=== PATIENT | female | born 1955 ===

== ENCOUNTER 2018-04-19 15:15 | Emergency (ER) | payer SELFPAY ==
[2018-04-19 15:40] LABS: BASO # 0.1 K/uL (0.0-0.2); EOS % 0.2 % (0.0-4.0); HEMOGLOBIN 12.6 g/dL (11.0-16.0); LYMPH # 3.4 K/uL (1.0-4.3); LYMPH % 27.4 % (20.0-40.0); MEAN CELL VOLUME 87.2 fL (81.0-99.0); MEAN CORPUSCULAR HGB CONC 33.3 g/dL (33.0-37.0); MEAN PLATELET VOLUME 7.2 fL (7.2-11.7); MONO # 0.5 K/uL (0.0-0.8); MONO % 4.5 % (0.0-10.0); NEUT # 8.2 K/uL (1.8-7.0); NEUT % 66.9 % (50.0-75.0); NRBC % 0.2 % (0.0-2.0); RBC 4.33 Mil/uL (3.80-5.20); RED CELL DISTRIBUTION WIDTH 13.7 % (11.5-14.5); WHITE BLOOD COUNT 12.2 K/uL (4.8-10.8)
[2018-04-19 15:52] LABS: ALB/GLOB RATIO 1.3 (1.0-2.1); ALT/SGPT 19 U/L (9-52); AST/SGOT 27 U/L (14-36); BLOOD UREA NITROGEN 16 mg/dL (7-17); CALCIUM 9.7 mg/dl (8.6-10.4); GFR NON-AFRICAN AMERICAN 56
--- NOTE | 2018-04-19 16:16 | C.PDOC ---
History Of Present Illness 62 year old female was in the ICU with her who today. The patient was sitting in the ICU when she received the news, she became hysterical and began to moan. At this time she had a questionable syncopal episode while sitting, it is unclear if the patient passed out. The patients breathing was heavy when she came to and only complained of dizziness. According to the family, the patient has no medical history. She denies chest pain and any other associated symptoms. Time Seen by Provider: 04/19/18 15:19 Chief Complaint (Nursing): Medical Clearance History Per: Patient History/Exam Limitations: no limitations Onset/Duration Of Symptoms: Mins Current Symptoms Are (Timing): Still Present Recent travel outside of the [place]: No Past Medical History Reviewed: Historical Data, Nursing Documentation, Vital Signs Vital Signs: Last Vital Signs Temp 97.9 F 04/19/18 15:21 Pulse 110 H 04/19/18 16:00 Resp 21 04/19/18 16:00 BP 166/83 H 04/19/18 16:00 Pulse Ox 99 04/19/18 16:00 Family History: States: Unknown Family Hx - Social History Hx Alcohol Use: No Hx Substance Use: No - Immunization History Hx Tetanus Toxoid Vaccination: No Hx Influenza Vaccination: No Hx Pneumococcal Vaccination: No Review Of Systems Constitutional: Negative for: Weakness Cardiovascular: Negative for: Chest Pain Respiratory: Negative for: Shortness of Breath Neurological: Positive for: Dizziness, Other (questionable syncopal episode.). Negative for: Numbness, Incoordination, Change in Speech, Confusion, Seizures, Headache Physical Exam - Physical Exam Appears: Well, Non-toxic, Other (Shaking and visibly upset) Skin: Normal Color, Warm, Dry Head: Atraumatic, Normacephalic Eye(s): bilateral: Normal Inspection Oral Mucosa: Moist Neck: Supple Chest: Symmetrical, No Deformity Cardiovascular: Rhythm Regular, No Murmur Respiratory: Normal Breath Sounds, No Rales, No Rhonchi, No Wheezing Gastrointestinal/Abdominal: Normal Exam, Soft, No Tenderness Extremity: Bilateral: Atraumatic, Normal Color And Temperature, Normal ROM Neurological/Psych: Oriented x3, Normal Speech, Normal Cognition ED Course And Treatment - Laboratory Results Result Diagrams: 04/19/18 15:37 04/19/18 15:37 Lab Results: Troponin I < 0.0120 ng/mL (0.00-0.120) 04/19/18 15:37 Total Bilirubin 0.7 mg/dL (0.2-1.3) 04/19/18 15:37 AST 27 U/L (14-36) 04/19/18 15:37 ALT 19 U/L (9-52) 04/19/18 15:37 Alkaline Phosphatase 109 U/L (38-126) 04/19/18 15:37 Total Protein 8.9 g/dL (6.3-8.3) H 04/19/18 15:37 Albumin 5.0 g/dL (3.5-5.0) 04/19/18 15:37 Globulin 3.8 gm/dL (2.2-3.9) 04/19/18 15:37 Albumin/Globulin Ratio 1.3 (1.0-2.1) 04/19/18 15:37 Lab Interpretation: No Acute Changes ECG: Interpreted By Me ECG Rhythm: Sinus Tachycardia (c/w old anterior infarct ? age) O2 Sat by Pulse Oximetry: 99 (RA) Pulse Ox Interpretation: Normal Progress Note: Patient calmed down in ED after IV Ativan. She was taken back to ICU to view her husbands body prior to [place] [facility] [place] and upon returning to the ED is agaadditional IV Ativan.in visibly upset and shaking. Reevaluation Time: 18:08 Reassessment Condition: Improved (after additional IV Ativan) Medical Decision Making Medical Decision Making: Initial plan: -EKG -Blood sent. -Ativan Disposition Counseled Patient/Family Regarding: Studies Performed, Diagnosis, Need For Followup, Rx Given - Disposition Referrals: [facility] [Outside] Disposition: HOME/ ROUTINE Disposition Time: 18:17 Condition: IMPROVED Additional Instructions: Please have her follow up in the clinic for evaluation of elevated blood sugar and possible elevated blood pressure. Prescriptions: Lorazepam [Ativan] 0.5 mg PO SS PRN #10 tab PRN Reason: Anxiety Instructions: Dealing With , Adult Forms: [employer] (Malagasy) - Clinical Impression Clinical Impression: Grief reaction - Scribe Statement The provider has reviewed the documentation as recorded by the Scribe (Elizabeth Sarabia) Provider Attestation: All medical record entries made by the Scribe were at my direction and personally dictated by me. I have reviewed the chart and agree that the record accurately reflects my personal performance of the history, physical exam, medical decision making, and the department course for this patient. I have also personally directed, reviewed, and agree with the discharge instructions and disposition.
[2018-04-19 17:59] VITALS: TEMP 98.2
[2018-04-19 19:13] VITALS: BP 155/79; PULSE 99; RESP 20; O2SAT 100
--- NOTE | 2018-04-21 11:51 | CARD ---
APPROVED REPORT Date of service: 04/19/2018 EKG Measurement Heart [id number] <Conclusion> Sinus tachycardia Possible Left atrial enlargement Anterior infarct, age undetermined Abnormal ECG
== END 2018-04-19 19:14 | disposition home or self-care (01) ==
LOC: C.ER 15:15
DX: F43.20 Adjustment disorder, unspecified (principal)
CPT/HCPCS: 80053; 82948; 84484; 85025; 93005; 96374; 96376; 99285; J2060